=== PATIENT | female | born 1965 | race Two or more races ===

== ENCOUNTER 2018-08-29 22:02 | Emergency (ER) | payer OTHER ==
[~2018-08-29] VITALS: Ht 157.5 cm; Wt 77.1 kg
[~2018-08-29 22:02] MED LIST: BENTYL10 MG/ML; NEXIUM5 MG; PRILOSEC20 MG; SYNTHROID88 MCG
[2018-08-29] MEDS ORDERED: PRES GEN LIQUI474 ML (22:08)
[2018-08-29] MEDS ORDERED: MONTELUKAST SOD10 MG (22:08)
[2018-08-30] MEDS ORDERED: IPRAT-ALBUT 0.5-3 ML IH (02:27)
[2018-08-30] MEDS ORDERED: BUDESONIDE0.5 MG/2 M IH (02:27)
[2018-08-30] MEDS ORDERED: PROMETH-CODEIN 65 ML PO (02:27)
[2018-08-30] MEDS ORDERED: ZITHROMAX500 MG PO (02:27)
[2018-08-30] MEDS ORDERED: MUCINEX DM ER1 EAC1 PO (02:27)
[2018-08-30] MEDS ORDERED: MEDROLPACK PO (02:27)
== END 2018-08-30 02:23 | disposition home or self-care (01) ==
LOC: ER 22:02
DX: J06.9 Acute upper respiratory infection, unspecified (principal)

== ENCOUNTER 2019-09-12 16:42 | Emergency (ER) | payer OTHER ==
[~2019-09-12] VITALS: Ht 157.5 cm; Wt 78.0 kg
[~2019-09-12 16:42] MED LIST changes: +BUDESONIDE0.5 MG/2 M IH; +IPRAT-ALBUT 0.5-3 ML IH; +MEDROLPACK PO; +MONTELUKAST SOD10 MG; +MUCINEX DM ER1 EAC1 PO; +PRES GEN LIQUI474 ML; +PROMETH-CODEIN 65 ML PO; +ZITHROMAX500 MG PO
[2019-09-12] MEDS ORDERED: SYNTHROID88 MCG (17:29)
== END 2019-09-12 21:04 | disposition home or self-care (01) ==
LOC: ER 16:42
DX: J45.998 Other asthma (principal); R05 Cough

== ENCOUNTER 2021-04-11 22:35 | Emergency (ER) | payer OTHER ==
[~2021-04-11] VITALS: Ht 157.5 cm; Wt 86.2 kg
[2021-04-12] MEDS ORDERED: ZYNCOF 20-400120 ML PO (03:37)
[2021-04-12] MEDS ORDERED: ALBUTEROL2.5 MG/3 M IH (03:37)
== END 2021-04-12 03:41 | disposition home or self-care (01) ==
LOC: ER 22:35
DX: J45.998 Other asthma (principal); J06.9 Acute upper respiratory infection, unspecified; R05 Cough; Z11.52 Encounter for screening for COVID-19

== ENCOUNTER 2022-05-12 01:13 | Emergency (ER) | payer OTHER ==
[~2022-05-12] VITALS: Ht 165.1 cm; Wt 81.6 kg
[~2022-05-12 01:13] MED LIST changes: +ALBUTEROL2.5 MG/3 M IH; +ZYNCOF 20-400120 ML PO
== END 2022-05-12 03:46 | disposition home or self-care (01) ==
LOC: ER 01:13
DX: J02.9 Acute pharyngitis, unspecified (principal); Z20.822 Contact with and (suspected) exposure to COVID-19

== ENCOUNTER → 2022-12-26 | Emergency (ER) | payer OTHER ==
[~2022-12-26] VITALS: Ht 167.6 cm; Wt 81.6 kg
== END | disposition home or self-care (01) ==
LOC: ER 23:41
DX: A04.9 Bacterial intestinal infection, unspecified (principal); K29.70 Gastritis, unspecified, without bleeding

== ENCOUNTER 2023-11-06 13:13 | Emergency (ER) | payer OTHER ==
[~2023-11-06] VITALS: Ht 157.5 cm; Wt 85.7 kg
[2023-11-06] MEDS ORDERED: MONJARO (13:30)
[2023-11-06 14:19] LABS: HEMATOCRIT 43.3 % (36.0-45.00); HEMOGLOBIN 14.7 g/dL (12.0-15.00); MEAN CELL VOLUME 86.4 fL (80.00-100.00); MEAN CORPUSCULAR HEMOGLOBIN 29.4 pg (27.00-32.0); PLATELET COUNT 215 K/uL (150-450); RED BLOOD COUNT 5.01 M/uL (4.00-6.00); RED CELL DISTRIBUTION WIDTH 13.1 % (11.5-14.5)
[2023-11-06 14:54] LABS: PH,URINE 5.5 (5.0-8.0); URINE APPEARANCE Cloudy; URINE BILIRRUBIN Negative (NEGATIVE); URINE BLOOD Negative; URINE COLOR Yellow; URINE GLUCOSE Negative (NEGATIVE); URINE LEUKOCYTE Moderate; URINE NITRATE Negative; URINE PROTEIN Negative (NEGATIVE)
[2023-11-06 14:54] LABS: CALCIUM 8.8 mg/dL (8.5-10.1); CREATININE SERUM 0.8 mg/dL (0.55-1.02); GFR 74.2; POTASSIUM 3.59 mEq/L (3.5-5.1)
[2023-11-06 14:57] LABS: URINE EPITHELIAL CELLS 56.4 uL (0.0-38.8); URINE RBC 24.2 uL (0.0-20.8); URINE WBC 175.3 uL (0.0-23.2)
== END 2023-11-06 17:59 | disposition home or self-care (01) ==
LOC: ER 13:13
PROVIDERS: Emergency Medicine
DX: K52.89 Other specified noninfective gastroenteritis and colitis (principal)